=== PATIENT | male | born 1950 | race Caucasian/White ===

== ENCOUNTER 2017-11-18 11:28 | Emergency (ER) | payer OTHER, MEDICARE ==
[~2017-11-18] VITALS: Ht 185.4 cm; Wt 122.5 kg
[~2017-11-18 11:28] MED LIST: ADULT LOW DOSE81 MG PO; ALLOPURINOL 10100 M1 PO; BACTROBAN CREAM30 G1; CLEOCIN HCL300 MG PO; DARVOCET-N 1001 EAC1 PO; FERREX 150150 MG PO; HIBICLENS120 ML TP; HYDROCHLOROTHIA25 M1 PO; IBUPROFEN 200200 M1 PO; KEFLEX500 MG PO; LISINOPRIL40 MG PO; MOBIC15 MG PO; MULTAQ400 MG PO; NITROSTAT0.4 MG PO; NORCO 5-325 TA1 EACH PO; PERCOCET 5-3251 EACH PO; SENOKOT-S1 TA1 PO; TOPROL XL50 MG PO; UNICOMPLEX M TA1 TA1 PO; ZOCOR 20 MG TAB20 M1 PO; [UNRECOGNIZED DRUG - REMARK]
[2017-11-18] MEDS ORDERED: NORCO 5-325 TA1 EACH PO (13:45)
[2017-11-18] MEDS ORDERED: IBUPROFEN 600600 M1 PO (13:45)
== END 2017-11-18 14:05 | disposition home or self-care (01) ==
LOC: ER 11:28
DX: R51 Headache (principal); M25.562 Pain in left knee; M54.5 Low back pain; M79.641 Pain in right hand; M54.2 Cervicalgia; I10 Essential (primary) hypertension; M10.9 Gout, unspecified; M19.90 Unspecified osteoarthritis, unspecified site; Z88.2 Allergy status to sulfonamides; W01.0XXA Fall on same level from slipping, tripping and stumbling without subsequent striking against object, initial encounter; Y93.89 Activity, other specified; Y92.89 Other specified places as the place of occurrence of the external cause; Y99.8 Other external cause status

== ENCOUNTER → 2018-10-04 | Outpatient (CLI) | payer OTHER, MEDICARE ==
[~2018-10-04] MED LIST changes: +IBUPROFEN 600600 M1 PO
== END ==
LOC: CAT 12:18
DX: J94.8 Other specified pleural conditions (principal); K80.70 Calculus of gallbladder and bile duct without cholecystitis without obstruction; N28.1 Cyst of kidney, acquired; N20.0 Calculus of kidney; M47.814 Spondylosis without myelopathy or radiculopathy, thoracic region; Z95.1 Presence of aortocoronary bypass graft

== ENCOUNTER → 2020-08-10 | Outpatient (CLI) | payer OTHER, MEDICARE | LOC: SJCVCIMAG 09:52 | PROVIDERS: ATTEND Internal Medicine Cardiovascular Disease | DX: I25.10 Atherosclerotic heart disease of native coronary artery without angina pectoris (principal); R00.0 Tachycardia, unspecified; I49.3 Ventricular premature depolarization; I10 Essential (primary) hypertension; E78.00 Pure hypercholesterolemia, unspecified; Z95.1 Presence of aortocoronary bypass graft; Z79.899 Other long term (current) drug therapy ==

== ENCOUNTER → 2021-07-29 | Outpatient (CLI) | payer OTHER, MEDICARE | LOC: SJCVC 12:53 | PROVIDERS: ATTEND Internal Medicine Cardiovascular Disease | DX: R94.31 Abnormal electrocardiogram [ECG] [EKG] (principal); I44.5 Left posterior fascicular block; R00.1 Bradycardia, unspecified; I25.10 Atherosclerotic heart disease of native coronary artery without angina pectoris; I10 Essential (primary) hypertension; E78.00 Pure hypercholesterolemia, unspecified; R60.9 Edema, unspecified; M19.90 Unspecified osteoarthritis, unspecified site; I65.29 Occlusion and stenosis of unspecified carotid artery; H26.9 Unspecified cataract; Z95.1 Presence of aortocoronary bypass graft; Z79.82 Long term (current) use of aspirin; Z79.84 Long term (current) use of oral hypoglycemic drugs; Z79.899 Other long term (current) drug therapy; Z88.2 Allergy status to sulfonamides; Z88.8 Allergy status to other drugs, medicaments and biological substances ==